=== PATIENT | female | born 1965 | race Caucasian/White ===

== ENCOUNTER 2021-03-16 09:46 | Outpatient (CLI) | payer BC | END 2021-03-16 09:47 | disposition home or self-care (01) | LOC: CSHRAD 09:46 | PROVIDERS: ATTEND Internal Medicine | DX: M25.552 Pain in left hip (principal) ==

== ENCOUNTER 2021-04-05 10:07 | Outpatient (CLI) | payer BC | END 2021-04-05 10:08 | disposition home or self-care (01) | LOC: CSHMAMMO 10:07 | PROVIDERS: ATTEND Internal Medicine | DX: Z12.31 Encounter for screening mammogram for malignant neoplasm of breast (principal); Z13.820 Encounter for screening for osteoporosis; Z78.0 Asymptomatic menopausal state | CPT/HCPCS: 77063; 77067; 77080 ==

== ENCOUNTER 2022-04-26 07:56 | Outpatient (CLI) | payer BC | END 2022-04-26 07:57 | disposition home or self-care (01) | LOC: CSHMAMMO 07:56 | PROVIDERS: ATTEND Internal Medicine | DX: Z12.31 Encounter for screening mammogram for malignant neoplasm of breast (principal) | CPT/HCPCS: 77063; 77067 ==

== ENCOUNTER 2023-05-20 09:54 | Outpatient (CLI) | payer BC | END 2023-05-20 09:55 | disposition home or self-care (01) | LOC: CSHMAMMO 09:54 | PROVIDERS: ATTEND Internal Medicine | DX: Z12.31 Encounter for screening mammogram for malignant neoplasm of breast (principal) | CPT/HCPCS: 77063; 77067 ==